=== PATIENT | male | born 1980 | race Hispanic/Latino ===

== ENCOUNTER 2017-11-05 23:24 | Emergency (ER) | payer BC ==
[~2017-11-05] VITALS: Ht 182.9 cm; Wt 90.7 kg
== END 2017-11-06 02:18 | disposition home or self-care (01) ==
LOC: ED 23:24
DX: F10.129 Alcohol abuse with intoxication, unspecified (principal); Y90.6 Blood alcohol level of 120-199 mg/100 ml
CPT/HCPCS: 70450; 80053; 85025; 96361; 96374; 99284; G0480; J2405; J7030